=== PATIENT | male | born 1965 | race Caucasian/White ===

== ENCOUNTER 2020-12-07 06:38 | Emergency (ER) | payer MEDICARE, OTHER, SELFPAY ==
[2020-12-07 06:53] VITALS: BP 179/93; PULSE 64; RESP 18; TEMP 36.5; O2SAT 99; BMI 26.1
--- NOTE | 2020-12-07 07:07 | PC.NURSE ---
Pt c/o severe lower left back pain, I had to go out and lift pt out of vehicle and wheelchair him in. Pt could not even answer questions he was in so much pain. Pt states his pain has been going on for 3 days and worse today. Pt was asked if he did anything to injure his back causing the worse pain. Pt stated I hurt it carrying my fucking coffin and Im leaving this fucking place. pt instantly went from not being able to walk or talk to standing up, walking out without a limp and cussing staff at the top of his lungs.
[2020-12-07 07:14] VITALS: BP 000/00; PULSE 0; RESP 0; TEMP -17.7; TEMP 0; O2SAT 0
== END 2020-12-07 07:16 | disposition left against medical advice (07) ==
PROVIDERS: Emergency Provider Emergency Medicine
DX: Z53.21 Procedure and treatment not carried out due to patient leaving prior to being seen by health care provider (principal); R03.0 Elevated blood-pressure reading, without diagnosis of hypertension
CPT/HCPCS: G0463; 99211

== ENCOUNTER 2022-08-17 09:19 | Emergency (ER) | payer MEDICARE, OTHER, SELFPAY ==
[2022-08-17] VITALS (9 sets, daily range): BP systolic 150–208; BP diastolic 90–110; PULSE 51–72; RESP 17–18; TEMP 36.3–36.7; O2SAT 97–100; BMI 25.8
--- NOTE | 2022-08-17 09:24 | PC.NURSE ---
PT TO BR TO PROVIDE URINE
[2022-08-17 09:44] LABS: Microscopic, Urine URINE MICROSCOPIC (MICROSCOPIC)
[2022-08-17 09:57] LABS: Appearance,Urine CLEAR (Clear); Bilirubin,Urine Negative (Negative); Blood, Urine Negative (Negative); Color,Urine YELLOW (Yellow); Glucose,Urine (UA) Negative (Negative); Ketones,Urine Negative (Negative); Leukocyte Esterase,Urine Negative (Negative); Nitrate,Urine Negative (Negative); Protein,Urine Negative (Negative); Specific Gravity, Urine 1.025 (1.005-1.030); Urobilinogen,Urine 0.2 EU/dl (0.2)
--- NOTE | 2022-08-17 10:10 | PC.NURSE ---
ED MD AT BEDSIDE FOR EVALUATION
--- NOTE | 2022-08-17 10:12 | CT_ITS ---
FINAL REPORT TECHNIQUE: Axial images through the abdomen and pelvis were performed without contrast. This study was performed with techniques to keep radiation doses as low as reasonably achievable, (ALARA). Individualized dose reduction techniques using automated exposure control or adjustment of mA and/or kV according to the patient's size were employed. CLINICAL HISTORY: L lower back pain, h/o kidney stones FINDINGS: Abdomen: The lung bases are clear. The liver parenchyma is homogeneous. The gallbladder is present. The spleen, pancreas, adrenals and kidneys are unremarkable. No renal stones or hydronephrosis. Pelvis: The urinary bladder is unremarkable. The appendix is not visualized. There is no pelvic mass or inflammation. There is no localized inflammatory reaction. IMPRESSION: No acute abnormality. Reviewed, Interpreted and Dictated by Justus Smith MD Transcribed by Abhijit Yeh Authenticated and [facility]
--- NOTE | 2022-08-17 10:13 | HMH.EDGENADL ---
Discharge Plan Disposition Patient Disposition: Home, Self-Care Condition: Fair Prescriptions Prescriptions: New hydrocodone-acetaminophen 5-325 mg tablet 1 tab PO Q6H PRN (Reason: pain) Qty: 10 0RF prednisone 20 mg tablet 20 mg PO BID Qty: 10 0RF Referrals Follow up/Referrals: Provider,Referral, [Primary Care Provider] - See instructions Activity Restrictions/Add. Instructions Additional Instructions/Restrictions: Prednisone as prescribed. Silt as needed for pain. Additional instructions for BACK PAIN: See your physician at the [facility] as soon as possible for further evaluation. Return immediately if back pain becomes intolerable, or if fever, numbness or weakness of your legs, loss of control of your bowels or bladder. Additional instructions regarding BLOOD PRESSURE: One or more of your blood pressure readings elevated today. Please contact your primary care physician for further evaluation or treatment of your blood pressure. Blood pressure at discharge 165/90. Additional instructions for CONTROLLED SUBSTANCES: You have been prescribed a medication that is a controlled substance. Controlled substances include pain medications known as opiates and sedative nerve medications known as benzodiazepines. Tramadol, fioricet, and gabapentin are also controlled substances. Some common opiates include: Codeine (such as Tylenol #3) Hydrocodone (Vicodin, Lortab, Lorcet, Silt) Oxycodone (Percocet, Percodan, Oxycodone, Oxy IR) Some common benzodiazepines include: Diazepam (Valium) Lorazepam (Ativan) Alprazolam (Xanax) Clonazepam (Klonopin) Oxazepam (Serax) All of these controlled substances are highly addictive and frequently abused. Misuse can and frequently does lead to addiction as well as overdose and . Medication should be stored in a locked cabinet or other secure storage unit. Do not store the medication in a motor vehicle. Short term supplies, 3 days or less, are prescribed because of the highly addictive nature of the medication. Any of the controlled substance medication NOT taken should be disposed of properly and NOT SAVED. The recommended method of disposing of unused medications is: Place the medicines in a sealable plastic bag. If the medicine is a solid, crush it or add water to dissolve it. Add something undesirable (cat litter, coffee grounds, etc.) Dispose of sealed bag in household trash Do not flush or pour unused medicines down a sink or drain. Controlled substances should not be shared, given away or sold. Because of the addictive nature and frequent abuse, these medications are sometimes stolen. These medications should be kept in a safe place where they cannot be stolen. Do not keep them in your car or purse. Lost or stolen prescriptions for controlled substances WILL NOT BE REFILLED in this emergency department, regardless of whether a police report was filed. Clinical Impressions Clinical Impression: Low back pain, DDD (degenerative disc disease), lumbar Instructions Patient Instructions: DI for Low Back Pain Discharge ED Provider: Seth Barnes General Adult HPI General Chief complaint: Back Pain/Injury Stated complaint: Possible kidney stone, lower back pain Time Seen by Provider: 08/17/22 10:08 Mode of Arrival: Ambulatory Limitations: No Limitations Description of Symptoms (Recalled from ER Triage Doc. by RN): PT REPORTS LEFT SIDED BACK PAIN X 4 DAYS. HX OF KIDNEY STONES BUT DID LIFT SOMETHING HEAVY History of Present Illness HPI narrative: Patient states that he has pain in his back and thinks he might have a kidney stone. He states that about 10 days ago he lifted something heavy and started having some lower back pain. After about 3 days he began having severe pain in his left lower back going down into the left side of his groin and into his left thigh down to his knee. States that he can see some muscle spasms in his leg. Tr
[2022-08-17 10:18] LABS: Basophils # 0.1 K/mm3 (0-0.2); Basophils % 1.4 % (0.1-2.0); Eosinophils # 0.5 K/mm3 (0.0-0.4); Eosinophils % 5.8 % (0.1-12.0); Hematocrit 48.1 % (42.0-52.0); Hemoglobin 15.5 g/dL (14.1-18.0); Lymphocytes # 1.9 K/mm3 (0.7-4.5); Lymphocytes % 21.2 % (10-50); Mean Corpuscular HGB Conc 32.2 g/dL (31.8-35.4); Mean Corpuscular Hemoglobin 30.6 pg (27.0-31.2); Mean Corpuscular Volume 95.2 fl (80-94); Mean Platelet Volume 8.1 fl (7.4-10.4); Monocytes # 0.8 K/mm3 (0.1-1.0); Neutrophils # 5.6 K/mm3 (1.8-7.8); Neutrophils % 62.7 % (37.0-80.0); Platelet Count 508 K/mm3 (142-424); Red Blood Count 5.05 M/mm3 (4.60-6.20); Red Cell Distribution Width 13.6 % (11.5-17.5)
[2022-08-17 10:22] LABS: WBC,Urine Occasional #/hpf (0-3)
[2022-08-17 10:31] LABS: Chloride 103 mmol/L (98-107); Potassium 4.1 mmoL/L (3.5-5.1); Sodium 141 mmol/L (136-145)
[2022-08-17 10:34] LABS: Anion Gap 12.1 mEq/L (5-15); Blood Urea Nitrogen 12 mg/dl (9-20); Calcium 9.3 mg/dl (8.4-10.2); Carbon Dioxide 30 mmol/L (22.0-30.0); Creatinine Clearance Estimated 111 mL/min (50-200); Estimated Glomerular Filt Rate 100 ml/min (>60); GFR (African American) 121 ML/MIN (>60); Glucose 118 mg/dl (74-100)
--- NOTE | 2022-08-17 10:34 | PC.NURSE ---
PT TO CT AT THIS TIME
--- NOTE | 2022-08-17 10:45 | PC.NURSE ---
PT GONE TO CT
--- NOTE | 2022-08-17 10:50 | PC.NURSE ---
PT RETURNED FROM CT, WARM BLANKET PROVIDED. CALL LIGHT WITHIN REACH
--- NOTE | 2022-08-17 11:40 | PC.NURSE ---
ROUNDED ON PT AT THIS TIME, PT RESTING WITH EYES CLOSED. NO DISTRESS NOTED
--- NOTE | 2022-08-17 13:16 | PC.NURSE ---
DR. SHERMAN SPEAKING WITH PT AND DAUGHTER
--- NOTE | 2022-08-17 13:22 | CT_ITS ---
FINAL REPORT TECHNIQUE: Axial images were performed through the lumbar spine by computed tomography. Sagittal reconstruction images were also performed. This study was performed with techniques to keep radiation doses as low as reasonably achievable, (ALARA). Individualized dose reduction techniques using automated exposure control or adjustment of mA and/or kV according to the patient''s size were employed. CLINICAL HISTORY: back pain FINDINGS: Sagittal reconstruction images demonstrate no subluxation. There are kxfy-ji-yomuwhis hypertrophic changes at the anterior margins of the disc spaces. T12-L1: There is no significant canal stenosis or neural foraminal narrowing. L1-2: Mild diffuse disc bulge is present with mild bilateral neural foraminal narrowing. L2-3: Moderate diffuse disc bulge and endplate hypertrophy are present. There is mild spinal and moderate bilateral neural foraminal narrowing. L3-4: Moderate diffuse disc bulge and endplate hypertrophy are present. There is moderate bilateral neural foraminal narrowing. L4-5: Moderate diffuse disc bulge and endplate hypertrophy are present. There is moderate bilateral neural foraminal narrowing. L5-S1: Mild endplate hypertrophy is present. There is calcification or ossification of the annulus, eccentric to the right with moderate right neural foraminal narrowing. IMPRESSION: Multilevel diffuse disc bulges with neural foraminal compromise, most evident on the right at L5-S1. Reviewed, Interpreted and Dictated by Justus Smith MD Transcribed by Cailin Chase Authenticated and [facility]
--- NOTE | 2022-08-17 13:34 | PC.NURSE ---
pt reports that his back pain is better after pain medicine. aware
--- NOTE | 2022-08-17 14:12 | PC.NURSE ---
PT SLEEPING WITH BLANKET OVER HIS HEAD
--- NOTE | 2022-08-17 15:07 | PC.NURSE ---
DR. SHERMAN AT BEDSIDE TO DISCUSS CT FINDINGS WITH PT
== END 2022-08-17 16:04 | disposition home or self-care (01) ==
PROVIDERS: Emergency Provider Emergency Medicine
DX: M51.36 Other intervertebral disc degeneration, lumbar region (principal); M62.838 Other muscle spasm; G89.29 Other chronic pain; F17.210 Nicotine dependence, cigarettes, uncomplicated; Z79.51 Long term (current) use of inhaled steroids; Z79.52 Long term (current) use of systemic steroids; Z79.899 Other long term (current) drug therapy; Z87.442 Personal history of urinary calculi
CPT/HCPCS: 72131; 74176; 80048; 81001; 85025; 96361; 96374; 96375; 99285; J2405

== ENCOUNTER 2024-02-24 09:46 | Emergency (ER) | payer MEDICARE, OTHER, SELFPAY ==
[2024-02-24 09:47] VITALS: BP 144/92; PULSE 66; RESP 18; TEMP 36.4; O2SAT 99; BMI 25.8
--- NOTE | 2024-02-24 09:48 | HMH.EDGENADL ---
Discharge Plan Disposition Patient Disposition: Home, Self-Care Condition: Good Prescriptions Prescriptions: No Action hydrocodone-acetaminophen 5-325 mg tablet 1 tab PO Q6H PRN (Reason: pain) Qty: 10 0RF prednisone 20 mg tablet 20 mg PO BID Qty: 10 0RF aspirin 81 mg Tablet 81 mg PO DAILY Referrals Follow up/Referrals: Demetrio Winters MD [Staff Physician] - See instructions Provider,MD Anjel [Primary Care Provider] - See instructions Activity Restrictions/Add. Instructions Additional Instructions/Restrictions: As we discussed, your hernia was able to be reduced and your labs did not show concerning signs for restricted blood flow to the hernia. We got a CT scan today that showed an inguinal hernia on the left. I have placed a referral to our general surgeon's however if needed, please get in contact with the general surgeons at the [facility]. Please use a truss for your hernia and do not do any movements that make the hernia bulge out more or feel worse such as lifting. Your hernia will likely continue to come in and out but if you have any worsening pain, skin changes such as dark skin over the hernia, hernia that is not coming back again, please return to the emergency department. Clinical Impressions Clinical Impression: Inguinal hernia Instructions Patient Instructions: DI for Groin Hernia, Groin Hernia -- Adult Discharge ED Provider: Jb Jules Adult HPI General Chief complaint: Abdominal Pain Stated complaint: groin pain Time Seen by Provider: 02/24/24 09:48 History of Present Illness HPI narrative: The patient presents today with severe abdominal pain, suspecting that his hernia has ruptured. He describes the onset of the pain as sudden and severe, occurring around 7 o'clock this morning. According to the patient, the pain immobilized him, causing intense discomfort when attempting to move. He reports that the pain escalated while he was attempting to sit up from lying on the couch, where he usually sleeps. The pain is described as a burning sensation, likened to being cut in half and feels like a hot sword in the left side of his groin area. He denies having any bowel movements since the incident and also reports an inability to urinate. He does not mention any nausea or vomiting. Additionally, the patient does not report any regular medications or pre-existing medical conditions. Please note that above description of symptoms, in this electronic medical record under categorization of recalled from ER triage doctor by RN are reflective of an initial nursing assessment, however, is not reflective of my full history and physical exam that was personally taken and clarified. Consequentially, this preceding description of symptoms, which may include the patient's categorized chief complaint in the EMR, do not reflect my personal clinical impression, and the ultimate description of history of present illness and patient stated complaints should be deferred to this section of the note. Unless stated otherwise or congruent with this section of the note, additional signs, symptoms, or incongruence should be interpreted as inaccurate with my clinical impression. Related Data Home Medications Medication Instructions Recorded Confirmed aspirin 81 mg tablet 81 mg PO DAILY 02/24/24 02/24/24 Previous Rx's Medication Instructions Recorded hydrocodone 5 mg-acetaminophen 325 1 tab PO Q6H PRN pain #10 tabs 08/17/22 mg tablet prednisone 20 mg tablet 20 mg PO BID #10 tabs 08/17/22 Allergies Allergy/AdvReac Type Severity Reaction Status Date / Time venom-honey bee Allergy Unknown Verified 02/24/24 09:59 [BEE VENOM (HONEY BEE)] [facility] Disclaimer: The information contained in this section may have been updated after the patient was seen, as this information can be updated by other users. Medical History (Updated 02/24/24 @ 12:32 by Jb Jules MD) No significant past medical history Family History Other No significant family history Social History Smoking Status: Current every day smoker tobacco type: cigarettes packs per day: 1 alcohol intake: never current occupational status: disabled Travel in the last 8 weeks: None ROS Obtained: Yes other As per HPI Physical Exam General General appearance: alert and in no apparent distress Head Head exam: atraumatic and normocephalic Eye Eye exam: Present normal appearance Neck Neck exam: Present normal inspection Chest Chest inspection: Present normal inspection and symmetric chest wall rise Respiratory Respiratory exam: Present normal lung sounds bilaterally; Absent respiratory distress Cardiovascular Cardiovascular exam: Present regular rate and normal rhythm Abdominal Exam Abdominal exam: Present soft Comment: Left-sided inguinal hernia, tender to palpation, with no overlying skin changes, no testicular tenderness to palpation Neurological Exam Neurological exam: Present alert and oriented X3 Psychiatric Psychiatric exam: Present normal affect and normal mood Skin Skin exam: Present warm and dry Medical Decision Making Medical Records Medical records reviewed: Yes I reviewed the patient's medical records. Jeb Inquiry Pt receiving controlled substance: No Vital Signs: 02/24/24 09:47 02/24/24 10:29 02/24/24 11:30 Temperature 97.6 F Temperature Source Oral Pulse Rate 74 52 L Pulse Rate [Left Radial] 66 Respiratory Rate 18 20 18 Blood Pressure 157/107 H 157/99 H Blood Pressure [Right Arm] 144/92 H Blood Pressure Mean 126 Blood Pressure Mean [Right Arm] 109 Blood Pressure Source Blood Pressure Source [Right Arm] Automatic Cuff Blood Pressure Position Blood Pressure Position [Right Arm] Sitting 02 Sat by Pulse Oximetry 99 97 97 Oxygen Delivery Method Room Air 02/24/24 11:30 02/24/24 12:30 02/24/24 12:41 Temperature 98.0 F Temperature Source Oral Pulse Rate 61 64 Pulse Rate [Left Radial] Respiratory Rate 16 16 Blood Pressure 157/99 H 139/97 H 122/79 Blood Pressure [Right Arm] Blood Pressure Mean 117 113 Blood Pressure Mean [Right Arm] Blood Pressure Source Automatic Cuff Blood Pressure Source [Right Arm] Blood Pressure Position Sitting Blood Pressure Position [Right Arm] 02 Sat by Pulse Oximetry 97 Oxygen Delivery Method Room Air 02/24/24 12:41 Temperature Temperature Source Pulse Rate 64 Pulse Rate [Left Radial] Respiratory Rate 16 Blood Pressure 122/79 Blood Pressure [Right Arm] Blood Pressure Mean 93 Blood Pressure Mean [Right Arm] Blood Pressure Source Blood Pressure Source [Right Arm] Blood Pressure Position Blood Pressure Position [Right Arm] 02 Sat by Pulse Oximetry 99 Oxygen Delivery Method Lab Data Lab Results 02/24/24 09:51: WBC 9.3, RBC 4.39 L, Hgb 13.5 L, Hct 40.7 L, MCV 92.8, MCH 30.7, MCHC 33.0, RDW 14.0, Plt Count 393, MPV 7.3 L, Neut % (Auto) 65.3, Lymph % (Auto) 19.6, [place] % (Auto) 9.6 H, Eos % (Auto) 4.3, Baso % (Auto) 1.3, Neut # (Auto) 6.0, Lymph # (Auto) 1.8, [place] # (Auto) 0.9, Eos # (Auto) 0.4, Baso # (Auto) 0.1, PT 10.5, INR 0.97, Sodium 138, Potassium 3.8, Chloride 105, Carbon Dioxide 27, Anion Gap 9.8, BUN 23 H, Creatinine 1.00, Estimated Creat Clear 88, Estimated GFR 77, Est GFR ( Amer) 93, Glucose 112 H, Lactate 1.5, Calcium 9.5, Total Bilirubin 0.5, AST 29, ALT 27, Alkaline Phosphatase 95, Total Protein 6.4, Albumin 3.7, Globulin 2.7, Albumin/Globulin Ratio 1.4, Lipase 39 02/24/24 09:51 02/24/24 09:51 Orders (Tests/Meds): ED MEDICATIONS Discontinued Medications Generic Name Dose Route Start Last Admin Trade Name Freq PRN Reason Stop Dose Admin Albuterol/Ipratropium 3 ml 02/24/24 10:02 02/24/24 10:17 Ipratropium/Albuterol 3 Ml Neb IH 02/24/24 10:03 Not Given ONCE ONE Fentanyl Citrate 50 mcg 02/24/24 11:46 02/24/24 11:51 Fentanyl 100mcg/2ml Vial IV 02/24/24 11:47 50 mcg ONCE ONE Administration Hydromorphone HCl 0.5 mg 02/24/24 10:17 02/24/24 10:26 Hydromorphone 4 Mg/Ml Syringe IV 02/24/24 10:18 0.5 mg ONCE ONE Administration Iopamidol 75 ml 02/24/24 11:17 02/24/24 11:18 Iopamidol-370 (76%);100ml Bottle IV 02/24/24 11:18 75 ml ONCE ONE Administration Methylprednisolone Sodium Succinate 80 mg 02/24/24 10:02 02/24/24 10:18 Methylprednisolone Sod Succ 40mg Vial IV 02/24/24 10:03 Not Given ONCE ONE Ondansetron HCl 4 mg 02/24/24 10:02 02/24/24 10:18 Ondansetron 4mg/2ml Vial IV 02/24/24 10:03 Not Given ONCE ONE Sodium Chloride 10 ml 02/24/24 11:17 02/24/24 11:18 Sodium Chloride 0.9% 10ml Syr (Rad Only) IV 02/24/24 11:18 10 ml ONCE ONE Administration ORDERS Category Date Time Status CT abdomen pelvis w con Stat Cat Scan 02/24/24 10:18 Completed CBC w/Auto Diff [Complete Blood Count Auto Diff] Stat Lab 02/24/24 09:51 Completed CMP [Comprehensive Metabolic Panel] Stat Lab 02/24/24 09:51 Completed Lactic Acid Stat Lab 02/24/24 09:51 Completed Lipase Stat Lab 02/24/24 09:51 Completed PT INR [Prothrombin Time INR] Stat Lab 02/24/24 09:51 Completed Medical Decision Narrative: Patient with history and exam per above presenting for evaluation of hernia pain Diagnoses considered include incarceration, strangulation, perforation, obstruction, among others ED workup and treatment included: ED MEDICATIONS Discontinued Medications Generic Name Dose Route Start Last Admin Trade Name Freq PRN Reason Stop Dose Admin Albuterol/Ipratropium 3 ml 02/24/24 10:02 02/24/24 10:17 Ipratropium/Albuterol 3 Ml Neb IH 02/24/24 10:03 Not Given ONCE ONE Fentanyl Citrate 50 mcg 02/24/24 11:46 02/24/24 11:51 Fentanyl 100mcg/2ml Vial IV 02/24/24 11:47 50 mcg ONCE ONE Administration Hydromorphone HCl 0.5 mg 02/24/24 10:17 02/24/24 10:26 Hydromorphone 4 Mg/Ml Syringe IV 02/24/24 10:18 0.5 mg ONCE ONE Administration Iopamidol 75 ml 02/24/24 11:17 02/24/24 11:18 Iopamidol-370 (76%);100ml Bottle IV 02/24/24 11:18 75 ml ONCE ONE Administration Methylprednisolone Sodium Succinate 80 mg 02/24/24 10:02 02/24/24 10:18 Methylprednisolone Sod Succ 40mg Vial IV 02/24/24 10:03 Not Given ONCE ONE Ondansetron HCl 4 mg 02/24/24 10:02 02/24/24 10:18 Ondansetron 4mg/2ml Vial IV 02/24/24 10:03 Not Given ONCE ONE Sodium Chloride 10 ml 02/24/24 11:17 02/24/24 11:18 Sodium Chloride 0.9% 10ml Syr (Rad Only) IV 02/24/24 11:18 10 ml ONCE ONE Administration ORDERS Category Date Time Status CT abdomen pelvis w con Stat Cat Scan 02/24/24 10:18 Completed CBC w/Auto Diff [Complete Blood Count Auto Diff] Stat Lab 02/24/24 09:51 Completed CMP [Comprehensive Metabolic Panel] Stat Lab 02/24/24 09:51 Completed Lactic Acid Stat Lab 02/24/24 09:51 Completed Lipase Stat Lab 02/24/24 09:51 Completed PT INR [Prothrombin Time INR] Stat Lab 02/24/24 09:51 Completed Labs were independently interpreted by me, significant for no leukocytosis, hemoglobin 13.5, lactate within normal limits Imaging was independently visualized and interpreted by me, significant for left-sided inguinal hernia. Please refer to radiology report for full details. Hernia was readily reduced upon repeat evaluation following administration of analgesia. Patient reports improvement of symptoms following reduction. My clinical impression at this time is most consistent with inguinal hernia, no incarceration or strangulation. I discussed my clinical impression with patient and answered all questions. At this time, the evidence for any other entities in the differential is insufficient to warrant any further testing or ED observation. This was explained to the patient. The patient was advised that persistent or worsening symptoms require further evaluation. I confirmed the patient's understanding of this discussion. Critical Care Critical Care Time Critical Care Time: No
--- NOTE | 2024-02-24 10:18 | CT_ITS ---
PROCEDURE INFORMATION: Exam: CT Abdomen And Pelvis With Contrast Exam date and time: 02/24/2024 11:10 AM Age: 58 years old Clinical indication: Abdominal pain; Generalized; Additional info: Acute pain of L inguinal hernia TECHNIQUE: Imaging protocol: Computed tomography of the abdomen and pelvis with contrast. Radiation optimization: All CT scans at this facility use at least one of these dose optimization techniques: automated exposure control; mA and/or kV adjustment per patient size (includes targeted exams where dose is matched to clinical indication); or iterative reconstruction. Contrast material: ISOVUE; Contrast volume: 75 ml; Contrast route: IV; COMPARISON: CT ABDOMEN PELVIS WO CON 08/17/2022 10:36 AM FINDINGS: Liver: Hemangioma within the medial right hepatic lobe measures 6.2 x 2.5 cm. Gallbladder and bile ducts: Normal. No calcified stones. No ductal dilation. Pancreas: Normal. No ductal dilation. Spleen: Normal. No splenomegaly. Adrenal glands: Normal. No mass. Kidneys and ureters: Simple cortical renal cyst superior pole right kidney measures 1.8 cm. Smaller cyst in the inferior pole. No hydronephrosis. Stomach and bowel: Colonic diverticulosis without CT evidence of diverticulitis. Appendix: No evidence of appendicitis. Intraperitoneal space: Unremarkable. No free air. No significant fluid collection. Vasculature: Unremarkable. No abdominal aortic aneurysm. Lymph nodes: Unremarkable. No enlarged lymph nodes. Urinary bladder: Unremarkable as visualized. Reproductive: Unremarkable as visualized. Bones/joints: Unremarkable. No acute fracture. Soft tissues: Left inguinal hernia containing sigmoid colon. No proximal obstruction identified. Minimal fluid in the hernia sac. Incarcerated bowel cannot be excluded. IMPRESSION: Left inguinal hernia containing sigmoid colon. No proximal obstruction identified. Minimal fluid in the hernia sac. Incarcerated bowel cannot be excluded. COMMENTS: Consistent with the [employer]'s Incidental Findings Committee white paper (J Am Ravinder Radiol 2018): Any incidental renal lesion less than 1 cm or classified as too small to characterize, or any incidental cystic renal lesion characterized as simple-appearing, is likely benign. No follow-up imaging is recommended for these lesions per consensus recommendations based on imaging criteria.
[2024-02-24 10:29] VITALS: BP 157/107; PULSE 74; RESP 20; O2SAT 97
[2024-02-24 10:31] LABS: Basophils # 0.1 K/mm3 (0-0.2); Basophils % 1.3 % (0.1-2.0); Chloride 105 mmol/L (98-107); Eosinophils # 0.4 K/mm3 (0.0-0.4); Eosinophils % 4.3 % (0.1-12.0); Hematocrit 40.7 % (42.0-52.0); Hemoglobin 13.5 g/dL (14.1-18.0); Lymphocytes # 1.8 K/mm3 (0.7-4.5); Lymphocytes % 19.6 % (10-50); Mean Corpuscular Hemoglobin 30.7 pg (27.0-31.2); Mean Corpuscular Volume 92.8 fl (80-94); Mean Platelet Volume 7.3 fl (7.4-10.4); Monocytes # 0.9 K/mm3 (0.1-1.0); Monocytes % 9.6 % (1.7-9.3); Neutrophils % 65.3 % (37.0-80.0); Platelet Count 393 K/mm3 (142-424); Potassium 3.8 mmoL/L (3.5-5.1); Red Blood Count 4.39 M/mm3 (4.60-6.20); Sodium 138 mmol/L (136-145); White Blood Count 9.3 K/mm3 (4.8-10.8)
[2024-02-24 10:33] LABS: Lactic Acid 1.5 mmol/L (0.7-2.1)
[2024-02-24 10:34] LABS: Alanine Aminotransferase 27 U/L (12-78); Albumin Level 3.7 g/dl (3.5-5.0); Albumin/Globulin Ratio 1.4 (1.1-1.8); Alkaline Phosphatase 95 U/L (38-126); Anion Gap 9.8 mEq/L (5-15); Aspartate Amino Transferase 29 U/L (17-59); Bilirubin,Total 0.5 mg/dl (0.2-1.3); Blood Urea Nitrogen 23 mg/dl (9-20); Calcium 9.5 mg/dl (8.4-10.2); Carbon Dioxide 27 mmol/L (22.0-30.0); Creatinine Clearance Estimated 88 mL/min (50-200); Estimated Glomerular Filt Rate 77 ml/min (>60); GFR (African American) 93 ML/MIN (>60); Globulin 2.7 g/dL (1.3-3.2); Glucose 112 mg/dl (74-100); Lipase 39 U/L (23-300); Total Protein,Serum 6.4 g/dl (6.3-8.2)
[2024-02-24 10:36] LABS: INR 0.97 (0.9-1.1); Prothrombin Time 10.5 seconds (10.1-12.5)
[2024-02-24] MEDS: IOPAMIDOL-370 (76%);100ML BOTTLE 75 ML IV (11:18)
[2024-02-24] MEDS: SODIUM CHLORIDE 0.9% 10ML SYR (RAD ONLY) 10 ML IV (11:18)
--- NOTE | 2024-02-24 11:27 | PC.NURSE ---
pt resting in bed. updated pt. no questions or concerns voiced. call light within reach. bed in lowest position.
[2024-02-24 11:30] VITALS: BP 157/99; PULSE 52; RESP 18; O2SAT 97
[2024-02-24] MEDS: FENTANYL 100MCG/2ML VIAL 50 MCG IV (11:51)
--- NOTE | 2024-02-24 11:58 | PC.NURSE ---
er at bedside
[2024-02-24 12:30] VITALS: BP 139/97; PULSE 61; RESP 16; O2SAT 97
[2024-02-24 12:41] VITALS: BP 122/79; PULSE 64; RESP 16; TEMP 36.7; O2SAT 99
--- NOTE | 2024-02-24 20:22 | PC.NURSE ---
MEDICAL RECORDS SENT TO [facility]
== END 2024-02-24 12:45 | disposition home or self-care (01) ==
PROVIDERS: Emergency Provider Emergency Medicine
DX: K40.90 Unilateral inguinal hernia, without obstruction or gangrene, not specified as recurrent (principal); R10.0 Acute abdomen; F17.210 Nicotine dependence, cigarettes, uncomplicated
CPT/HCPCS: 74177; 80053; 83605; 83690; 85025; 85610; 96374; 96375; 99285; Q9967